=== PATIENT | male | born 1970 | race Caucasian/White ===

== ENCOUNTER → 2020-09-21 | Outpatient (CLI) | payer OTHER | LOC: KOH-I 08:42 | DX: S92.402K Displaced unspecified fracture of left great toe, subsequent encounter for fracture with nonunion (principal); M20.62 Acquired deformities of toe(s), unspecified, left foot; M19.072 Primary osteoarthritis, left ankle and foot; X58.XXXD Exposure to other specified factors, subsequent encounter | CPT/HCPCS: 73630 ==

== ENCOUNTER → 2020-12-23 | Outpatient (CLI) | payer BC | LOC: KOH-I 09:01 | DX: S92.402K Displaced unspecified fracture of left great toe, subsequent encounter for fracture with nonunion (principal); M19.072 Primary osteoarthritis, left ankle and foot; X58.XXXD Exposure to other specified factors, subsequent encounter | CPT/HCPCS: 73630 ==